=== PATIENT | male | born 1995 | race Caucasian/White ===

== ENCOUNTER 2017-08-23 21:34 | Emergency (ER) | payer SELFPAY ==
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
[2017-08-23] MEDS: ONDANSETRON HCL/PF 4 MG/ 2ML VIAL IVP ONE (21:49)
[2017-08-23] MEDS: 0.9 % SODIUM CHLORIDE 1,000 ML IV SCH (22:00)
[2017-08-23] MEDS ORDERED: 0.9 % SODIUM CHLORIDE 1,000 ML IV SCH (22:00)
[2017-08-23] MEDS: KETOROLAC TROMETHAMINE 30 MG/1ML VIAL IVP ONE (22:05)
[2017-08-23 22:23] LABS: BASOPHILS % 0.2 (0.0-1.5); EOSINOPHILS % 0.2 % (0.0-6.8); MEAN CORPUSCULAR HEMOGLOBIN 29.8 pg (28.0-34.0); MEAN CORPUSCULAR VOLUME 89.5 fl (80.0-100.0); MONOCYTES % 4.6 % (0.0-11.0); NEUTROPHILS # 9.2 # k/uL (1.4-7.7)
[2017-08-23 22:36] LABS: eGFR (African) > 60; eGFR (Non-African) > 60
[2017-08-23] MEDS: Lidocaine 1% 5ml(IM or SUTURE)(PAIN CLINIC) ONE (22:40)
[2017-08-23 23:06] VITALS: BP 110/53
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
== END 2017-08-23 22:55 | disposition short-term general hospital (02) ==
LOC: ED 21:34
DX: S09.90XA Unspecified injury of head, initial encounter (principal); X58.XXXA Exposure to other specified factors, initial encounter; Y93.9 Activity, unspecified; Y99.9 Unspecified external cause status
CPT/HCPCS: 70450; 70486; 80053; 85025; 85610; 85730; J1885; J2405; J7030; 96361; 96374; 96375; 99284